=== PATIENT | male | born 1940 | race Caucasian/White ===

== ENCOUNTER 2017-09-01 13:30 | Outpatient (CLI) | payer MEDICARE, BC | END 2017-09-01 23:59 | disposition home health service (06) | LOC: WOU 13:30 | PROVIDERS: ATTEND Surgery | DX: L89.323 Pressure ulcer of left buttock, stage 3 (principal); Z90.2 Acquired absence of lung [part of]; L89.311 Pressure ulcer of right buttock, stage 1; Z99.81 Dependence on supplemental oxygen; E66.9 Obesity, unspecified; Z68.34 Body mass index [BMI] 34.0-34.9, adult; Z85.118 Personal history of other malignant neoplasm of bronchus and lung; Z79.82 Long term (current) use of aspirin; Z79.84 Long term (current) use of oral hypoglycemic drugs; Z79.899 Other long term (current) drug therapy; E11.9 Type 2 diabetes mellitus without complications | CPT/HCPCS: 11042; A6402 ==

== ENCOUNTER 2017-09-15 13:20 | Outpatient (CLI) | payer MEDICARE, BC | END 2017-09-15 23:59 | disposition home or self-care (01) | LOC: WOU 13:20 | PROVIDERS: ATTEND Surgery | DX: L89.323 Pressure ulcer of left buttock, stage 3 (principal); L89.311 Pressure ulcer of right buttock, stage 1; Z85.118 Personal history of other malignant neoplasm of bronchus and lung; Z90.2 Acquired absence of lung [part of]; Z99.81 Dependence on supplemental oxygen; E11.9 Type 2 diabetes mellitus without complications; L89.151 Pressure ulcer of sacral region, stage 1; E66.9 Obesity, unspecified; Z68.34 Body mass index [BMI] 34.0-34.9, adult | CPT/HCPCS: A6402; G0463 ==

== ENCOUNTER 2017-09-29 13:13 | Outpatient (CLI) | payer MEDICARE, BC | END 2017-09-29 23:59 | disposition home or self-care (01) | LOC: WOU 13:13 | PROVIDERS: ATTEND Surgery | DX: L89.323 Pressure ulcer of left buttock, stage 3 (principal); L89.41 Pressure ulcer of contiguous site of back, buttock and hip, stage 1; Z90.2 Acquired absence of lung [part of]; Z99.81 Dependence on supplemental oxygen; Z85.118 Personal history of other malignant neoplasm of bronchus and lung; E66.9 Obesity, unspecified; Z68.34 Body mass index [BMI] 34.0-34.9, adult; E11.9 Type 2 diabetes mellitus without complications | CPT/HCPCS: G0463 ==

== ENCOUNTER 2017-10-20 12:44 | Outpatient (CLI) | payer MEDICARE, BC | END 2017-10-20 23:59 | disposition home or self-care (01) | LOC: WOU 12:44 | PROVIDERS: ATTEND Surgery | DX: L89.323 Pressure ulcer of left buttock, stage 3 (principal); L89.311 Pressure ulcer of right buttock, stage 1; L89.151 Pressure ulcer of sacral region, stage 1; E11.9 Type 2 diabetes mellitus without complications; E66.9 Obesity, unspecified; Z68.34 Body mass index [BMI] 34.0-34.9, adult; Z71.3 Dietary counseling and surveillance; Z85.118 Personal history of other malignant neoplasm of bronchus and lung; Z90.2 Acquired absence of lung [part of]; Z99.81 Dependence on supplemental oxygen | CPT/HCPCS: G0463 ==

== ENCOUNTER 2017-11-10 10:00 | Outpatient (CLI) | payer MEDICARE, BC | END 2017-11-10 23:59 | disposition home or self-care (01) | LOC: WOU 10:00 | PROVIDERS: ATTEND Surgery | DX: L89.311 Pressure ulcer of right buttock, stage 1 (principal); E66.9 Obesity, unspecified; Z68.34 Body mass index [BMI] 34.0-34.9, adult; L89.151 Pressure ulcer of sacral region, stage 1; Z85.118 Personal history of other malignant neoplasm of bronchus and lung; Z90.2 Acquired absence of lung [part of]; Z99.81 Dependence on supplemental oxygen | CPT/HCPCS: G0463 ==

== ENCOUNTER 2018-03-23 12:55 | Outpatient (CLI) | payer MEDICARE, BC | END 2018-03-23 23:59 | disposition home or self-care (01) | LOC: WOU 12:55 | PROVIDERS: ATTEND Surgery | DX: L89.323 Pressure ulcer of left buttock, stage 3 (principal); L89.313 Pressure ulcer of right buttock, stage 3; E66.9 Obesity, unspecified; Z68.34 Body mass index [BMI] 34.0-34.9, adult; Z85.118 Personal history of other malignant neoplasm of bronchus and lung; Z90.2 Acquired absence of lung [part of]; E11.9 Type 2 diabetes mellitus without complications; Z79.84 Long term (current) use of oral hypoglycemic drugs; M62.3 Immobility syndrome (paraplegic); Z99.81 Dependence on supplemental oxygen | CPT/HCPCS: G0463 ==

== ENCOUNTER 2019-09-27 12:41 | Outpatient (CLI) | payer MEDICARE, BC | END 2019-09-27 23:59 | disposition home or self-care (01) | LOC: WOU 12:41 | PROVIDERS: ATTEND Surgery | DX: L89.323 Pressure ulcer of left buttock, stage 3 (principal); E11.9 Type 2 diabetes mellitus without complications; E66.9 Obesity, unspecified; Z68.34 Body mass index [BMI] 34.0-34.9, adult; Z85.118 Personal history of other malignant neoplasm of bronchus and lung; Z90.2 Acquired absence of lung [part of]; Z99.81 Dependence on supplemental oxygen | CPT/HCPCS: 11042 ==

== ENCOUNTER 2020-04-08 15:02 | Emergency (ER) | payer MEDICARE, BC ==
[~2020-04-08] VITALS: Ht 188 cm; Wt 99.3 kg
[2020-04-08] MEDS ORDERED: IV NS 0.9% 500 ML BAG IV ONE (15:30)
[2020-04-08 15:42] LABS: BASOPHILS # (AUTO) 0.1 /CMM (0.0-0.2); BASOPHILS % (AUTO) 1.1 % (0.0-2.0); EOSINOPHILS % (AUTO) 0.3 % (0.0-6.0); HEMATOCRIT 40 % (39-51); HEMOGLOBIN 13.3 g/dL (13.5-17.5); LYMPHOCYTES # (AUTO) 0.4 /CMM (0.8-4.8); LYMPHOCYTES % (AUTO) 4.1 % (20.0-44.0); MEAN CORPUSCULAR HGB CONC 34 g/dl (31.0-36.0); MEAN CORPUSCULAR VOLUME 96 fL (80-96); MONOCYTES # (AUTO) 0.4 /CMM (0.1-1.30); NEUTROPHILS # (AUTO) 9.8 /CMM (1.8-8.9); NEUTROPHILS % (AUTO) 90.5 % (43.0-81.0); PLATELET COUNT (AUTO) 251 /CMM (150-450); RED BLOOD CELL COUNT(AUTO) 4.15 MIL/uL (4.5-6.0); WHITE BLOOD COUNT (AUTO) 10.8 K/uL (4.3-11.0)
[2020-04-08 15:49] LABS: CALCIUM, SERUM 9.2 mg/dL (8.5-10.1); CARBON DIOXIDE 36 mmol/L (21-32); CHLORIDE 87 mmol/L (98-107); CREATININE 2.6 mg/dL (0.6-1.3); GLUCOSE 211 mg/dL (74-106); POTASSIUM 4.2 mmol/L (3.5-5.1); SODIUM SERUM 132 mmol/L (136-145); UREA NITROGEN, BLOOD 44 mg/dL (7-18)
--- NOTE | 2020-04-08 15:54 | NUR ---
[id number], from home, c/o dizziness and generalized weakness since this morning, took percocet half tab this afternoon per , BS 178. PT AAOX4, SPEAKING FLUENTLY, VSS. NO FACIAL DROOP, TONGUE ON MIDLINE, NO ARM/LEG DRIFTING. DENIES CP, SOB, N/V/D, ONEAL, VISUAL CHANGES, FEVER @ THIS TIME. PT SEEN & EVAL'D BY DR. NGUYEN. PLACED ON MANAGER PET. WILL CONT TO MONITOR.
[2020-04-08 15:55] LABS: ALANINE AMINOTRANSFERASE 31 U/L (12-78); ALBUMIN 4.1 g/dL (3.4-5.0); ALKALINE PHOSPHATASE 40 U/L (46-116); ASPARTATE AMINOTRANSFERASE 21 U/L (15-37); BILIRUBIN,DIRECT 0.2 mg/dL (0.0-0.2); BILIRUBIN,TOTAL 0.7 mg/dL (0.2-1.0); TOTAL PROTEIN, SERUM 6.8 g/dL (6.4-8.2)
--- NOTE | 2020-04-08 16:59 | NUR ---
ORTHOSTATIC VITALS DONE. AWARE.
[2020-04-08] MEDS ORDERED: IV NS 0.9% 250 ML BAG IV ONE ×2 (17:00→18:00)
--- NOTE | 2020-04-08 19:00 | NUR ---
PT EATING A MEAL, PT MEGAN WELL.
--- NOTE | 2020-04-08 19:51 | NUR ---
PT STABLE, AMBULATED WELL. DENIES CP, SOB, DIZZINESS, N/V UPON AMBULATION. MD AWARE.
[2020-04-08 20:11] VITALS: BP 92/54
--- NOTE | 2020-04-08 20:12 | NUR ---
Patient discharged to home in stable condition. Written and verbal after care instructions given. Patient verbalizes understanding of instruction. IV removed. Catheter intact and site benign. Pressure and 4x4 applied to site. No bleeding noted.
== END 2020-04-08 20:13 | disposition home or self-care (01) ==
LOC: ER 15:06
DX: E86.0 Dehydration (principal); N28.9 Disorder of kidney and ureter, unspecified; R42 Dizziness and giddiness; I45.10 Unspecified right bundle-branch block; E78.5 Hyperlipidemia, unspecified; E11.9 Type 2 diabetes mellitus without complications; Z85.118 Personal history of other malignant neoplasm of bronchus and lung; Z90.2 Acquired absence of lung [part of]; Z88.6 Allergy status to analgesic agent
CPT/HCPCS: 36415; 71045; 80048; 80076; 84484; 85025; 93005; 99285; J7040 ×2